=== PATIENT | female | born 1955 | race African-American/Black ===

== ENCOUNTER 2017-06-23 13:54 | Emergency (ER) | payer MEDICARE, MEDICAID ==
[~2017-06-23] VITALS: Ht 167.6 cm; Wt 89.7 kg
[~2017-06-23 13:54] MED LIST: ACULAR LS 5 ML5 ML; ADALAT CC60 MG PO; AMBIEN 10MG10 MG PO; AMITRIPTYLINE H25 M1 PO; AMITRIPTYLINE H50 M1 PO; AMOXICILLIN 25250 MG PO; APAP PO; ARTHRITIS MEDS; ASPIRIN 81M81 MG/TA2 PO; ATIVAN 1MG T1 MG/TAB PO; BACTROBAN 22GM22 GM NAS; BENAZEPRIL; BENAZEPRIL PO; BIAXIN FILMTAB500 MG PO; BUMEX 1MG TA1 MG/TA1 PO; BUTAL PO; BUTALBITAL/APAP1 TA1 PO; CAFF PO; CATAPRES 0.1MG0.1 MG PO; CATAPRES0.2 MG PO; CECLOR 250MG250 MG PO; CEFTIN 250250 MG/TAB PO; CEPHALEXIN500 M1 PO; CLINORIL 1150 MG/TAB PO; CLONAZEPAM PO; COREG 6.256.25 MG/TA PO; COZAAR 25MG25 MG/TAB PO; CYMBALTA 60MG60 MG PO; DEMADEX100 MG PO; DEPAKOTE 250MG250 MG PO; DEPAKOTE DR500 MG PO; DEPAKOTE ER 25250 MG PO; DEPAKOTE500 M1 PO; DEPAKOTE500 MG PO; DEXILANT60 MG PO; ELIDEL; EPIPEN 2-PAK1 MG/ML IM; EPIPEN1 MG/ML MR; FELDENE20 MG PO; FLEXERIL 1010 MG/TAB PO; FLONASEALLERGY NS; GLUCAGEN; GLUCOPHAGE1000 MG PO; INDOMETHACIN50 MG PO; INSLANT; KEPPRA1000 MG PO; KLONOPIN 0.5MG0.5 MG PO; KLONOPIN WAF0.125 MG PO; KLONOPIN WAFER0.5 MG PO; KLOR-CON SPRINK8 MEQ PO; LANTUS100 U/ML SC; LANTUS100 U/ML SQ; LASIX 20MG TABL20 MG PO; LASIX 40MG TABL40 MG PO; LEVAQUIN 5500 MG/TA1 PO; LEVAQUIN 750MG750 M1 PO; LIORESAL 1010 MG/TAB PO; LIORESAL20 MG PO; LIPITOR20 MG PO; LYRICA 150MG C150 MG PO; MELOXICAM; MORPHINE 1515 MG/TAB; MORPHINE 1515 MG/TAB PO; NASONEX SPRAY; NEURONTIN100 MG/CAP PO; NEURONTIN300 MG/CAP PO; NEXIUM 40MG40 MG PO; NEXIUM40 MG PO; NIZORAL CREAM15 GM TP; NORCO 325 MG-51 TAB PO; NORCO 325 MG-7.1 TAB PO; NORVASC 10MG10 MG PO; NORVASC 5MG5 MG/TAB PO; NORVASC10 MG PO; NOVLOG; NOVOLOG 100U100 U/M1 SC; NOVOLOG 100U100 U/M1 SQ; NOVOLOG100 U/ML SC; OCUFLOX OPHTH DR5 ML; PAMELOR50 MG PO; PENICILLIN V500 MG PO; PIROXICAM20 MG PO; PLAVIX 75MG TAB75 MG PO; PRED FORTE 1 ML1 ML; PRILOSEC 20MG20 MG PO; PRILOTC PO; PROAIR HFA0.09 MG/AC IH; PROCARDIA XL 3030 MG PO; PROCARDIA XL 6060 MG PO; REQUIP0.25 MG PO; SINGULAIR 110 MG/TAB PO; TEMOVATE0.05% TP; TOPAMAX 25MG25 M1 PO; TOPROL XL 50MG50 MG PO; TRAMADOL50 MG PO; TYLENOL W/COD1 UDTAB PO; ULTRAM 50MG TAB50 MG; ULTRAM 50MG TAB50 MG PO; ULTRAM100 MG PO; VASOTEC 2.2.5 MG/TAB PO; VENTOLIN0.09 MG IH; VOLTAREN; ZANAFLEX 4MG TAB4 MG PO; ZESTRIL 20MG TA20 MG PO; ZESTRIL 5MG5 MG PO; ZOFRAN ODT4 MG PO; ZOFRAN4 MG PO; ZOFRAN8 MG PO; ZYRTEC 10MG10 MG PO; ZYRTEC-D 12HR 51 TER PO; ZYRTEC-D 5 MG-11 TER PO; [UNRECOGNIZED DRUG - REMARK]; [UNRECOGNIZED DRUG - REMARK]; [UNRECOGNIZED DRUG - REMARK]; [UNRECOGNIZED DRUG - REMARK]
[2017-06-23 13:56] VITALS: TEMP 98.2
[2017-06-23 15:03] LABS: BASO % 0.7 % (0.0-2.0); EOS # 0.3 (0.0-0.7); GRAN % 54.6 % (42.2-75.2); LYMPH # 1.8 (1.2-3.4); MEAN CELL VOLUME 84 fl (80.0-100.0); MEAN CORPUSCULAR HGB CONC 33 g/dl (33.0-37.0); MEAN PLATELET VOLUME 12.2 fl (7.4-10.4); MONO # 0.4 (0.1-0.6); MONO % 6.5 % (1.7-9.3); PLATELET COUNT 262 K/mm3 (130-400); RED BLOOD COUNT 4.04 M/mm3 (4.10-5.30); REDCELL DISTRIBUTION WIDTH-CV 13.2 % (11.5-14.5); WHITE BLOOD COUNT 5.6 K/mm3 (4.8-10.8)
[2017-06-23 15:04] LABS: HEMOGLOBIN 11.1 g/dl (12.5-16.0); MEAN CORPUSCULAR HEMOGLOBIN 27 pg (27.0-31.0)
[2017-06-23] MEDS ORDERED: NORVASC 10MG10 MG PO (15:12)
[2017-06-23] MEDS ORDERED: CEFTIN 250250 MG/TAB PO (15:13)
[2017-06-23] MEDS ORDERED: GLUCOPHAGE500 MG/TAB PO (15:13)
[2017-06-23 15:24] LABS: ADJUSTED CALCIUM 9.3 mg/dL (8.4-10.2); BILIRUBIN,TOTAL 0.5 mg/dL (0.0-1.0); C-REACTIVE PROTEIN 0.8 mg/dL (0.0-0.9); CALCIUM 9.3 mg/dL (8.4-10.2); CREATININE, serum 1.19 mg/dL (0.52-1.25); POTASSIUM 4.7 mmol/L (3.4-5.0); TOTAL PROTEIN 7.7 gm/dL (6.4-8.2)
[2017-06-23] MEDS ORDERED: PREDNISONE20 MG PO (16:08)
[2017-06-23 16:29] VITALS: BP 148/86; PULSE 65
== END 2017-06-23 16:29 | disposition home or self-care (01) ==
LOC: COL.ER 13:54
PROVIDERS: Family Medicine
DX: J20.9 Acute bronchitis, unspecified (principal); E11.9 Type 2 diabetes mellitus without complications; I10 Essential (primary) hypertension; Z86.73 Personal history of transient ischemic attack (TIA), and cerebral infarction without residual deficits; Z87.891 Personal history of nicotine dependence; Z79.4 Long term (current) use of insulin; Z79.84 Long term (current) use of oral hypoglycemic drugs; Z79.02 Long term (current) use of antithrombotics/antiplatelets; Z79.82 Long term (current) use of aspirin

== ENCOUNTER 2017-07-05 11:21 | Emergency (ER) | payer MEDICARE ==
[~2017-07-05] VITALS: Ht 167.6 cm; Wt 89.5 kg
[~2017-07-05 11:21] MED LIST changes: +GLUCOPHAGE500 MG/TAB PO; +PREDNISONE20 MG PO
[2017-07-05 11:28] VITALS: TEMP 99.3
[2017-07-05 12:48] LABS: PH 6 (5-8); SQUAMOUS EPITHELIAL 0-2 /hpf; URINE APPEARANCE Clear; URINE BACTERIA None Seen /hpf; URINE BILIRUBIN Negative (NEGATIVE); URINE BLOOD Negative (NEGATIVE); URINE COLOR Straw; URINE GLUCOSE 3+ (NEGATIVE); URINE KETONE Negative (NEGATIVE); URINE UROBILINOGEN Negative (NEGATIVE); URINE WBC 0-2 /hpf
[2017-07-05 13:10] LABS: BASO # 0.1 (0.0-0.2); EOS # 0.2 (0.0-0.7); GRAN # 3.8 (1.4-6.5); GRAN % 53.7 % (42.2-75.2); LYMPH # 2.3 (1.2-3.4); LYMPH % 33.4 % (20.0-51.0); MEAN CELL VOLUME 83 fl (80.0-100.0); MEAN CORPUSCULAR HGB CONC 34 g/dl (33.0-37.0); MEAN PLATELET VOLUME 12.3 fl (7.4-10.4); MONO # 0.6 (0.1-0.6); MONO % 8.6 % (1.7-9.3); PLATELET COUNT 259 K/mm3 (130-400); RED BLOOD COUNT 3.77 M/mm3 (4.10-5.30); REDCELL DISTRIBUTION WIDTH-CV 13.6 % (11.5-14.5)
[2017-07-05 13:11] LABS: HEMATOCRIT 31.3 % (37.0-47.0); HEMOGLOBIN 10.5 g/dl (12.5-16.0); MEAN CORPUSCULAR HEMOGLOBIN 28 pg (27.0-31.0)
[2017-07-05 13:17] LABS: ADJUSTED CALCIUM 9.5 mg/dL (8.4-10.2); ALANINE AMINOTRANSFERASE 24 U/L (9-52); ALBUMIN 4.1 gm/dL (3.5-5.0); ALKALINE PHOSPHATASE 116 U/L (50-136); ANION GAP 10 mmol/L (7-16); BILIRUBIN,TOTAL 0.6 mg/dL (0.0-1.0); BLOOD UREA NITROGEN 38 mg/dL (7-17); CALCIUM 9.6 mg/dL (8.4-10.2); CARBON DIOXIDE 22 mmol/L (22-30); CHLORIDE 103 mmol/L (98-107); CREATININE, serum 1.49 mg/dL (0.52-1.25); GLUCOSE 368 mg/dL (74-106); POTASSIUM 4.6 mmol/L (3.4-5.0); SODIUM 135 mmol/L (137-145); TOTAL PROTEIN 7.1 gm/dL (6.4-8.2)
[2017-07-05] MEDS ORDERED: FLEXERIL5 MG PO (14:44)
[2017-07-05 14:53] VITALS: BP 192/104; PULSE 74
== END 2017-07-05 14:55 | disposition home or self-care (01) ==
LOC: COL.ER 11:21
PROVIDERS: Physician Assistant
DX: E10.65 Type 1 diabetes mellitus with hyperglycemia (principal); M25.511 Pain in right shoulder; G89.29 Other chronic pain; I10 Essential (primary) hypertension; E78.5 Hyperlipidemia, unspecified; M79.7 Fibromyalgia; Z79.82 Long term (current) use of aspirin; Z79.84 Long term (current) use of oral hypoglycemic drugs
CPT/HCPCS: J3010; J7040

== ENCOUNTER → 2017-07-09 | Outpatient (CLI) | payer MEDICARE, MEDICAID ==
[~2017-07-09] MED LIST changes: +FLEXERIL5 MG PO
== END ==
LOC: COL.VAS 12:20
DX: M79.662 Pain in left lower leg (principal); R60.9 Edema, unspecified

== ENCOUNTER → 2017-07-14 | Outpatient (CLI) | payer MEDICARE, MEDICAID | LOC: COL.RAD 14:18 | DX: M75.81 Other shoulder lesions, right shoulder (principal); M75.101 Unspecified rotator cuff tear or rupture of right shoulder, not specified as traumatic; M19.011 Primary osteoarthritis, right shoulder ==

== ENCOUNTER → 2017-07-30 | Outpatient (CLI) | payer MEDICARE, MEDICAID ==
[2017-07-30 16:31] LABS: BASO # 0.1 (0.0-0.2); EOS # 0.3 (0.0-0.7); EOS % 4.3 % (0-4.0); GRAN # 3.4 (1.4-6.5); GRAN % 47.7 % (42.2-75.2); LYMPH # 2.6 (1.2-3.4); LYMPH % 36.1 % (20.0-51.0); MEAN CELL VOLUME 86 fl (80.0-100.0); MEAN CORPUSCULAR HGB CONC 33 g/dl (33.0-37.0); MEAN PLATELET VOLUME 12.4 fl (7.4-10.4); MONO # 0.8 (0.1-0.6); MONO % 10.6 % (1.7-9.3); PLATELET COUNT 311 K/mm3 (130-400); WHITE BLOOD COUNT 7.2 K/mm3 (4.8-10.8)
[2017-07-30 16:38] LABS: ADJUSTED CALCIUM 9.4 mg/dL (8.4-10.2); ALBUMIN 4.2 gm/dL (3.5-5.0); BILIRUBIN,TOTAL 0.6 mg/dL (0.0-1.0); CALCIUM 9.6 mg/dL (8.4-10.2); CHOLESTEROL RISK RATIO 2.2; CREATININE, serum 1.32 mg/dL (0.52-1.25); POTASSIUM 4.1 mmol/L (3.4-5.0); TOTAL PROTEIN 7.9 gm/dL (6.4-8.2)
[2017-07-30 16:48] LABS: HEMOGLOBIN 11.8 g/dl (12.5-16.0); MEAN CORPUSCULAR HEMOGLOBIN 28 pg (27.0-31.0)
[2017-07-30 17:05] LABS: TSH w REFLEX 2.09 uIU/mL (0.465-4.680)
== END ==
LOC: SUN.DIA 15:29 → COL.LAB 15:29
PROVIDERS: Family Medicine
DX: E11.8 Type 2 diabetes mellitus with unspecified complications (principal); E78.5 Hyperlipidemia, unspecified

== ENCOUNTER 2017-12-02 14:44 | Emergency (ER) | payer MEDICARE, MEDICAID ==
[~2017-12-02] VITALS: Ht 167.6 cm; Wt 91.4 kg
[2017-12-02 14:46] VITALS: TEMP 98.1
[2017-12-02] MEDS ORDERED: SINGULAIR 110 MG/TAB PO (15:09)
[2017-12-02 15:46] LABS: BASO # 0.1 (0.0-0.2); BASO % 1.1 % (0.0-2.0); EOS # 0.2 (0.0-0.7); EOS % 3.9 % (0-4.0); GRAN # 3.5 (1.4-6.5); GRAN % 56.3 % (42.2-75.2); LYMPH # 1.9 (1.2-3.4); LYMPH % 30.5 % (20.0-51.0); MEAN CELL VOLUME 88 fl (80.0-100.0); MEAN CORPUSCULAR HGB CONC 32 g/dl (33.0-37.0); MEAN PLATELET VOLUME 12.6 fl (7.4-10.4); MONO # 0.5 (0.1-0.6); PLATELET COUNT 262 K/mm3 (130-400); RED BLOOD COUNT 3.93 M/mm3 (4.10-5.30); REDCELL DISTRIBUTION WIDTH-CV 12.9 % (11.5-14.5)
[2017-12-02 15:50] LABS: HEMATOCRIT 34.5 % (37.0-47.0); MEAN CORPUSCULAR HEMOGLOBIN 28 pg (27.0-31.0)
[2017-12-02 16:14] LABS: ALBUMIN 4.3 gm/dL (3.5-5.0); BILIRUBIN,TOTAL 0.3 mg/dL (0.0-1.0); C-REACTIVE PROTEIN 0.7 mg/dL (0.0-0.9); CALCIUM 9.7 mg/dL (8.4-10.2); CREATININE, serum 1.39 mg/dL (0.52-1.25); MAGNESIUM 1.9 mg/dL (1.6-2.3); TOTAL PROTEIN 7.8 gm/dL (6.4-8.2)
[2017-12-02 16:51] LABS: ERYTHROCYTE SEDIMENTATION RATE 25 mm/hr (0-30)
[2017-12-02 19:05] VITALS: BP 165/85; PULSE 70
== END 2017-12-02 19:10 | disposition home or self-care (01) ==
LOC: COL.ER 14:44
PROVIDERS: Emergency Medicine
DX: E10.65 Type 1 diabetes mellitus with hyperglycemia (principal); E10.319 Type 1 diabetes mellitus with unspecified diabetic retinopathy without macular edema; M79.661 Pain in right lower leg; M79.662 Pain in left lower leg; M79.671 Pain in right foot; M79.672 Pain in left foot; M79.0 Rheumatism, unspecified; I10 Essential (primary) hypertension; E78.5 Hyperlipidemia, unspecified; Z87.891 Personal history of nicotine dependence; Z86.73 Personal history of transient ischemic attack (TIA), and cerebral infarction without residual deficits; Z87.39 Personal history of other diseases of the musculoskeletal system and connective tissue; Z79.02 Long term (current) use of antithrombotics/antiplatelets
CPT/HCPCS: J1815

== ENCOUNTER 2018-06-10 09:15 | Observation (INO) | payer MEDICARE ==
[~2018-06-10] VITALS: Ht 167.6 cm; Wt 99.0 kg
[2018-06-10] MEDS ORDERED: KEPPRA 500MG500 MG PO (09:21)
[2018-06-10] MEDS ORDERED: CELEBREX 200MG200 MG PO (09:23)
[2018-06-10] MEDS ORDERED: TOPAMAX 25MG25 M1 PO (09:23)
[2018-06-10 10:04] LABS: BASO # 0.1 (0.0-0.2); BASO % 0.9 % (0.0-2.0); EOS # 0.2 (0.0-0.7); EOS % 2.4 % (0-4.0); GRAN # 5.5 (1.4-6.5); GRAN % 69.7 % (42.2-75.2); HEMOGLOBIN 10.4 g/dl (12.5-16.0); LYMPH # 1.6 (1.2-3.4); LYMPH % 20.1 % (20.0-51.0); MEAN CELL VOLUME 86 fl (80.0-100.0); MEAN CORPUSCULAR HEMOGLOBIN 27 pg (27.0-31.0); MEAN CORPUSCULAR HGB CONC 31 g/dl (33.0-37.0); MEAN PLATELET VOLUME 12.2 fl (7.4-10.4); MONO # 0.5 (0.1-0.6); MONO % 6.5 % (1.7-9.3); PLATELET COUNT 302 K/mm3 (130-400); RED BLOOD COUNT 3.87 M/mm3 (4.10-5.30); REDCELL DISTRIBUTION WIDTH-CV 13.7 % (11.5-14.5)
[2018-06-10 10:05] LABS: HEMATOCRIT 33.1 % (37.0-47.0)
[2018-06-10 10:13] LABS: ALANINE AMINOTRANSFERASE 21 U/L (9-52); ALKALINE PHOSPHATASE 117 U/L (50-136); ANION GAP 11 mmol/L (7-16); AST,SGOT 24 U/L (15-37); BILIRUBIN,TOTAL 0.2 mg/dL (0.0-1.0); BLOOD UREA NITROGEN 31 mg/dL (7-17); CALCIUM 8.9 mg/dL (8.4-10.2); CARBON DIOXIDE 23 mmol/L (22-30); CHLORIDE 107 mmol/L (98-107); CREATININE, serum 1.61 mg/dL (0.52-1.25); GLUCOSE 160 mg/dL (74-106); POTASSIUM 3.4 mmol/L (3.4-5.0); SODIUM 141 mmol/L (137-145); TOTAL PROTEIN 7.5 gm/dL (6.4-8.2)
[2018-06-10 10:28] LABS: COLLECTION METHOD CLEAN CATCH
[2018-06-10 10:35] LABS: PH 6 (5-8); SQUAMOUS EPITHELIAL 0-2 /hpf; URINE APPEARANCE Clear; URINE BACTERIA None Seen /hpf; URINE BILIRUBIN Negative (NEGATIVE); URINE BLOOD Negative (NEGATIVE); URINE COLOR Yellow; URINE GLUCOSE Negative (NEGATIVE); URINE KETONE Negative (NEGATIVE); URINE LEUKOCYTE ESTERASE Negative (NEGATIVE); URINE NITRATE Negative (NEGATIVE); URINE PROTEIN(semi-quant) 1+ (NEGATIVE); URINE RBC 0-2 /hpf; URINE UROBILINOGEN Negative (NEGATIVE)
[2018-06-10 10:36] LABS: TROPONIN-I < 0.012 ng/mL (0.000-0.034)
[2018-06-10 10:46] LABS: TRICYCLIC ANTIDEPRESS URINE NEGATIVE
[2018-06-10] MEDS ORDERED: TOPROL XL 25MG25 MG PO (17:12)
[2018-06-10 17:19] VITALS: BP 153/75; PULSE 80; TEMP 98.4
[2018-06-10 19:09] VITALS: BP 149/67; PULSE 73; TEMP 98.5
[2018-06-11 00:02] VITALS: BP 139/73; PULSE 76; TEMP 97.9
[2018-06-11 03:21] VITALS: BP 133/61; PULSE 78; TEMP 98.8
[2018-06-11 06:28] LABS: BASO # 0.1 (0.0-0.2); BASO % 0.7 % (0.0-2.0); EOS # 0.2 (0.0-0.7); EOS % 2.7 % (0-4.0); GRAN # 3.4 (1.4-6.5); GRAN % 49.1 % (42.2-75.2); LYMPH # 2.7 (1.2-3.4); MEAN CELL VOLUME 86 fl (80.0-100.0); MEAN CORPUSCULAR HGB CONC 31 g/dl (33.0-37.0); MEAN PLATELET VOLUME 12.6 fl (7.4-10.4); MONO # 0.6 (0.1-0.6); MONO % 8.2 % (1.7-9.3); PLATELET COUNT 268 K/mm3 (130-400); RED BLOOD COUNT 3.43 M/mm3 (4.10-5.30); REDCELL DISTRIBUTION WIDTH-CV 13.6 % (11.5-14.5)
[2018-06-11 06:34] LABS: HEMATOCRIT 29.4 % (37.0-47.0); HEMOGLOBIN 9.2 g/dl (12.5-16.0); MEAN CORPUSCULAR HEMOGLOBIN 27 pg (27.0-31.0)
[2018-06-11 06:42] LABS: CALCIUM 8.6 mg/dL (8.4-10.2); CHOLESTEROL RISK RATIO 2.6; CREATININE, serum 1.53 mg/dL (0.52-1.25); POTASSIUM 3.8 mmol/L (3.4-5.0)
[2018-06-11 12:03] VITALS: BP 125/67; PULSE 81; TEMP 98.8
[2018-06-11] MEDS ORDERED: TEGRETOL 2200 MG/TA1 PO (14:50)
[2018-06-11] MEDS ORDERED: FIORICET 325 MG1 TA1 PO (14:54)
== END 2018-06-11 16:25 | disposition home or self-care (01) ==
LOC: COL.ER 09:15 → MEDICAL 11:30
PROVIDERS: Emergency Medicine; Family Medicine
DX: G40.209 Localization-related (focal) (partial) symptomatic epilepsy and epileptic syndromes with complex partial seizures, not intractable, without status epilepticus (principal); R41.82 Altered mental status, unspecified; E11.9 Type 2 diabetes mellitus without complications; G40.409 Other generalized epilepsy and epileptic syndromes, not intractable, without status epilepticus; I10 Essential (primary) hypertension; M79.7 Fibromyalgia; Z79.01 Long term (current) use of anticoagulants; E86.0 Dehydration; R09.81 Nasal congestion; M17.0 Bilateral primary osteoarthritis of knee; K21.9 Gastro-esophageal reflux disease without esophagitis; M19.011 Primary osteoarthritis, right shoulder; Z86.73 Personal history of transient ischemic attack (TIA), and cerebral infarction without residual deficits; Z79.4 Long term (current) use of insulin; Z79.1 Long term (current) use of non-steroidal anti-inflammatories (NSAID); Z87.891 Personal history of nicotine dependence; Z83.3 Family history of diabetes mellitus; Z82.3 Family history of stroke; Z82.49 Family history of ischemic heart disease and other diseases of the circulatory system; Z88.1 Allergy status to other antibiotic agents; Z88.6 Allergy status to analgesic agent; Z88.8 Allergy status to other drugs, medicaments and biological substances; Z90.09 Acquired absence of other part of head and neck
CPT/HCPCS: A9585; G0378; J1650; J1815; J2060; J2405; J7030

== ENCOUNTER → 2018-06-22 | Outpatient (CLI) | payer MEDICARE ==
[~2018-06-22] MED LIST changes: +CELEBREX 200MG200 MG PO; +FIORICET 325 MG1 TA1 PO; +KEPPRA 500MG500 MG PO; +TEGRETOL 2200 MG/TA1 PO; +TOPROL XL 25MG25 MG PO
[2018-06-22 15:53] LABS: BASO # 0.1 (0.0-0.2); EOS # 0.2 (0.0-0.7); EOS % 2.6 % (0-4.0); GRAN # 3.3 (1.4-6.5); GRAN % 56.6 % (42.2-75.2); LYMPH # 1.9 (1.2-3.4); LYMPH % 32.2 % (20.0-51.0); MEAN CELL VOLUME 86 fl (80.0-100.0); MEAN CORPUSCULAR HEMOGLOBIN 28 pg (27.0-31.0); MEAN CORPUSCULAR HGB CONC 32 g/dl (33.0-37.0); MEAN PLATELET VOLUME 11.6 fl (7.4-10.4); MONO # 0.4 (0.1-0.6); MONO % 7.3 % (1.7-9.3); PLATELET COUNT 324 K/mm3 (130-400); RED BLOOD COUNT 3.59 M/mm3 (4.10-5.30); REDCELL DISTRIBUTION WIDTH-CV 13.6 % (11.5-14.5)
[2018-06-22 15:59] LABS: CALCIUM 8.5 mg/dL (8.4-10.2); CREATININE, serum 1.48 mg/dL (0.52-1.25); HEMATOCRIT 30.9 % (37.0-47.0)
== END ==
LOC: COL.LAB 15:09
PROVIDERS: Psychiatry & Neurology Neurology
DX: G40.209 Localization-related (focal) (partial) symptomatic epilepsy and epileptic syndromes with complex partial seizures, not intractable, without status epilepticus (principal)

== ENCOUNTER 2019-06-04 10:50 | Emergency (ER) | payer MEDICARE ==
[~2019-06-04] VITALS: Ht 167.6 cm; Wt 91.4 kg
[2019-06-04 10:58] VITALS: TEMP 98.6
[2019-06-04] MEDS ORDERED: MEDROL 4MG DOSPA4 MG PO (15:44)
[2019-06-04 15:59] VITALS: BP 151/98; PULSE 71
== END 2019-06-04 16:01 | disposition home or self-care (01) ==
LOC: COL.ER 10:50
DX: M25.511 Pain in right shoulder (principal); G89.29 Other chronic pain; I10 Essential (primary) hypertension; Z79.02 Long term (current) use of antithrombotics/antiplatelets; Z79.4 Long term (current) use of insulin
CPT/HCPCS: J1885

== ENCOUNTER → 2019-12-01 | Outpatient (CLI) | payer MEDICARE, MEDICAID ==
[~2019-12-01] MED LIST changes: +MEDROL 4MG DOSPA4 MG PO
== END ==
LOC: COL.RAD 11-28 08:15
DX: G31.9 Degenerative disease of nervous system, unspecified (principal); M50.322 Other cervical disc degeneration at C5-C6 level; E11.9 Type 2 diabetes mellitus without complications

== ENCOUNTER → 2020-02-20 | Outpatient (CLI) | payer MEDICARE, MEDICAID | LOC: COL.CARD 11:05 | DX: I49.3 Ventricular premature depolarization (principal) ==

== ENCOUNTER 2020-05-24 14:44 | Inpatient (IN) | payer MEDICARE, MEDICAID ==
[~2020-05-24] VITALS: Ht 167.6 cm; Wt 80.6 kg
[~2020-05-24 14:44] MED LIST changes: +REQUIP 0.5MG0.5 MG PO; -TOPROL XL 25MG25 MG PO
[2020-05-24 15:31] LABS: BASO # 0.1 (0.0-0.2); BASO % 0.9 % (0.0-2.0); EOS # 0.1 (0.0-0.7); EOS % 0.9 % (0-4.0); GRAN # 3.3 (1.4-6.5); GRAN % 57.5 % (42.2-75.2); HEMOGLOBIN 11.9 g/dl (12.5-16.0); INR 0.9 (0.8-3.0); LYMPH # 1.7 (1.2-3.4); LYMPH % 30.6 % (20.0-51.0); MEAN CELL VOLUME 89 fl (80.0-100.0); MEAN CORPUSCULAR HEMOGLOBIN 29 pg (27.0-31.0); MEAN CORPUSCULAR HGB CONC 32 g/dl (33.0-37.0); MEAN PLATELET VOLUME 14.2 fl (7.4-10.4); MONO # 0.6 (0.1-0.6); MONO % 9.7 % (1.7-9.3); PLATELET COUNT 162 K/mm3 (130-400); PROTHROMBIN TIME 10.5 SECONDS (9.7-12.8); RED BLOOD COUNT 4.15 M/mm3 (4.10-5.30); REDCELL DISTRIBUTION WIDTH-CV 12.8 % (11.5-14.5)
[2020-05-24 15:37] LABS: COLLECTION METHOD CATHETER
[2020-05-24] MEDS ORDERED: BASAGLAR K100 UNIT/1 SQ (15:44)
[2020-05-24] MEDS ORDERED: ZOFRAN8 MG PO (15:44)
[2020-05-24 15:45] LABS: PH 7 (5-8); SQUAMOUS EPITHELIAL None Seen /hpf; URINE APPEARANCE Clear; URINE BACTERIA Rare /hpf; URINE BILIRUBIN Negative (NEGATIVE); URINE BLOOD Negative (NEGATIVE); URINE COLOR Straw; URINE GLUCOSE 3+ (NEGATIVE); URINE KETONE Negative (NEGATIVE); URINE LEUKOCYTE ESTERASE Negative (NEGATIVE); URINE NITRATE Negative (NEGATIVE); URINE PROTEIN(semi-quant) 2+ (NEGATIVE); URINE RBC 0-2 /hpf; URINE UROBILINOGEN Negative (NEGATIVE)
[2020-05-24] MEDS ORDERED: PRINIVIL20 MG PO (15:45)
[2020-05-24] MEDS ORDERED: DEPAKOTE500 MG PO (15:46)
[2020-05-24] MEDS ORDERED: VIMPAT150 MG PO (15:48)
[2020-05-24 16:01] LABS: TRICYCLIC ANTIDEPRESS URINE NEGATIVE
[2020-05-24] MEDS ORDERED: TEGRETOL 2200 MG/TA1 PO (17:00)
[2020-05-24] MEDS ORDERED: PLAVIX 75MG TAB75 MG PO (17:01)
[2020-05-24] MEDS ORDERED: LIPITOR20 MG PO (17:01)
[2020-05-24 17:54] LABS: ALANINE AMINOTRANSFERASE 13 U/L (4-34); ALBUMIN 4.2 gm/dL (3.5-5.0); ALKALINE PHOSPHATASE 115 U/L (50-136); ANION GAP 8 mmol/L (7-16); AST,SGOT 27 U/L (15-37); BILIRUBIN,TOTAL 0.6 mg/dL (0.0-1.0); BLOOD UREA NITROGEN 31 mg/dL (7-17); CARBON DIOXIDE 24 mmol/L (22-30); CHLORIDE 103 mmol/L (98-107); CREATININE, serum 1.65 (0.52-1.25); GLUCOSE 332 mg/dL (74-106); MAGNESIUM 1.9 mg/dL (1.6-2.3); POTASSIUM 4.4 mmol/L (3.4-5.0); SODIUM 136 mmol/L (137-145); TOTAL PROTEIN 7.7 gm/dL (6.4-8.2)
[2020-05-24 17:55] LABS: ALCOHOL(ethanol),MEDICAL < 10 mg/dL
[2020-05-24 17:57] LABS: ACETONE,SERUM NEGATIVE; CARBAMAZEPINE (TEGRETOL) 8.4 ug/mL (4.0-12.0)
[2020-05-24 17:58] LABS: VALPROIC ACID (DEPAKENE) 40.5 ug/mL (50.0-100.0)
[2020-05-24 18:06] LABS: TROPONIN-I < 0.012 ng/mL (0.000-0.035)
[2020-05-24 18:10] LABS: PROLACTIN 10.6 ng/mL (3.0-18.6)
[2020-05-24 19:48] VITALS: BP 180/69; PULSE 68; TEMP 97.6
--- NOTE | 2020-05-24 19:53 | NUR ---
PATIENT ARRIVED TO THE FLOOR
[2020-05-24 23:33] VITALS: BP 156/64; PULSE 68; TEMP 98.1
--- NOTE | 2020-05-25 01:34 | NUR ---
ASSISTED PATIENT TO THE BED SIDE COMMONDE WITH THE ASSISTANCE OF 2 PEOPLE. PATIENT WAS VERY WOBBLY ON HER FEET AND COULD NOT STEP AT FIRST. PATIENT USED THE BEDSIDE COMMONDE AND THEN WAS ASSISTED BACK TO BED. 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
[2020-05-25 04:13] VITALS: BP 156/64; PULSE 66; TEMP 98
--- NOTE | 2020-05-25 05:20 | NUR ---
patient came up to the unit from the emergency room. patient is a heavy 2 assist as she is not steady on her feet. patient will have intermittent confusion going on. patient is able to tell you who the president is, what year it is, and where she is but has troubles telling you what her birthday is. patient is on teley and has no issues there. patient is npo for a brain w & w/o MRI this morning. patient is on seizure precautions as she does have seizures and her doctors have been changing her medications around. reports that the patient gets injections behind her eyes because of the diabetic retniopathy. patient does have weakness but is weaker on her left side. will continue to monitor but will report off to day shift.
[2020-05-25 06:49] LABS: CALCIUM 8.6 mg/dL (8.4-10.2); CREATININE, serum 1.65 (0.52-1.25); POTASSIUM 3.7 mmol/L (3.4-5.0)
[2020-05-25 07:13] LABS: BASO # 0.1 (0.0-0.2); EOS # 0.1 (0.0-0.7); EOS % 1.2 % (0-4.0); GRAN # 2.3 (1.4-6.5); GRAN % 45.4 % (42.2-75.2); LYMPH % 40.6 % (20.0-51.0); MEAN CELL VOLUME 89 fl (80.0-100.0); MEAN CORPUSCULAR HGB CONC 33 g/dl (33.0-37.0); MEAN PLATELET VOLUME 14.1 fl (7.4-10.4); MONO # 0.6 (0.1-0.6); MONO % 11.6 % (1.7-9.3); PLATELET COUNT 142 K/mm3 (130-400); RED BLOOD COUNT 3.39 M/mm3 (4.10-5.30)
[2020-05-25 07:14] LABS: HEMATOCRIT 30.2 % (37.0-47.0); HEMOGLOBIN 9.8 g/dl (12.5-16.0); MEAN CORPUSCULAR HEMOGLOBIN 29 pg (27.0-31.0)
[2020-05-25 08:58] VITALS: BP 166/64; PULSE 56; TEMP 97.8
[2020-05-25 11:47] VITALS: BP 157/75; PULSE 67; TEMP 98.4
--- NOTE | 2020-05-25 13:31 | NUR ---
Clay Press Operator met with the patient to complete initial intake. PT/OT/ST and Neurology ordered/consulted. The patient lives in [place] with her , Sanchez. The patient receives assistance from Sanchez for showers as needed. The patient's PCP is Dr. Aguilar and patient receives medications delivered from [facility]. The patient does not have advanced directives. The patient plans to return home at discharge with Sanchez providing transportation. MORGAN contacted the patient's Sanchez to discuss this plan. Sanchez states the patient is home alone on Tuesdays, Wednesdays and Fridays from 8-4. He states that the patient does prepare her own meals and is able to toilet herself while he is out of the home. He spends the rest of the time with the patient in the home. MORGAN inquired about possible HHS and Sanchez would like to find out more before a decision is made regarding HHS. Will continue to follow.
--- NOTE | 2020-05-25 15:59 | NUR ---
Pt assessment completed and charted. Medications administered per mar after MRI. Pt is alert, oriented to time, place, situation. Occasional confused conversation. Per ST during cog eval, pt unable to "find certain words" and "understand some concepts". Speech has been clear and appropriate with this nurse, some forgetfulness noted. Neuro checks WNL, strength appropriate. Pt is 1-2 assist to bedside commode, unsteadiness on feet. Pt had RWR and LWR IV. Pt has been difficult stick w/ labs, this nurse called NETTE Padilla to discuss PICC placement. PICC ordered, pt has TAQUERIA PICC in place now, both ports flush well, good blood return. Pt on room air, breathing is even and unlabored. Pt denies SOB. LS CTA, heart RRR. Pt denies pain at this time. BS checked resulting 65, pt headed to MRI. Pt back from MRI and lunch brought up, BS rechecked resulted 115. Pt denies any other pain. No further needs expressed at this time. This nurse has spoke to multiple times to discuss POC. Per pt pt isn ot to be on Depakote, pt has been receiving med. This nurse called Dr. Alvarado office for med list. Will notify NETTE Padilla.
[2020-05-25 17:13] VITALS: BP 154/65; PULSE 58
--- NOTE | 2020-05-25 19:44 | NUR ---
Pt assessment completed and documented. Pt just finished eating dinner and is currently resting in bed. Pt alert and oriented x4. Denies pain. PICC to RUE CDI with good blood return. Pt denies any other needs at this time. Seizure precautions in place. Fall precautions in place. Bed alarm on. Call light within reach. Will continue to monitor.
[2020-05-25 21:29] VITALS: BP 127/51; PULSE 58; TEMP 98
[2020-05-26 00:02] VITALS: BP 161/78; PULSE 63; TEMP 98.1
--- NOTE | 2020-05-26 02:21 | NUR ---
Pt had episode of vomiting. PRN zofran given per orders. PT states relief from nausea and is not experiencing any vomiting at this time. Requesting televison be turned off along with lights. Call light within reach. Will continue to monitor.
[2020-05-26 03:44] VITALS: BP 153/73; PULSE 65; TEMP 98
--- NOTE | 2020-05-26 06:50 | NUR ---
Pt has uneventful shift. Pt alert and oriented x4 throughout the night. Denied pain. Pt had one episode of nausea/ vomiting and received PRN zofran x1 per orders. PICC to RUE CDI. Pt denies any other needs at this time. Call light within reach. Bed alarm on.
--- NOTE | 2020-05-26 06:55 | NUR ---
Report given to KELTON Petit
[2020-05-26 06:57] LABS: BASO % 0.5 % (0.0-2.0); EOS # 0.1 (0.0-0.7); EOS % 0.9 % (0-4.0); GRAN # 4.7 (1.4-6.5); GRAN % 71.4 % (42.2-75.2); LYMPH # 1.2 (1.2-3.4); LYMPH % 18.6 % (20.0-51.0); MEAN CELL VOLUME 90 fl (80.0-100.0); MEAN CORPUSCULAR HGB CONC 32 g/dl (33.0-37.0); MONO # 0.5 (0.1-0.6); MONO % 8.1 % (1.7-9.3); PLATELET COUNT 139 K/mm3 (130-400); RED BLOOD COUNT 3.22 M/mm3 (4.10-5.30); REDCELL DISTRIBUTION WIDTH-CV 12.8 % (11.5-14.5)
[2020-05-26 07:07] LABS: HEMATOCRIT 29.1 % (37.0-47.0); HEMOGLOBIN 9.3 g/dl (12.5-16.0); MEAN CORPUSCULAR HEMOGLOBIN 29 pg (27.0-31.0)
[2020-05-26 07:12] LABS: CALCIUM 8.5 mg/dL (8.4-10.2); CREATININE, serum 1.49 (0.52-1.25)
--- NOTE | 2020-05-26 08:15 | NUR ---
Patient sitting up in bed. Nursing staffx2 assisted patient up in bed for breakfast. VSS. PICC TAQUERIA CDI. Patient is alertx3, but intermittently confused. Denies pain and discomfort. No further needs expressed from the patient. Seizure precautions in place. Call light within reach. Fall precautions in place
[2020-05-26 08:20] VITALS: BP 160/59; PULSE 57; TEMP 97.6
[2020-05-26] MEDS ORDERED: TOPROL XL100 MG PO (10:07)
[2020-05-26] MEDS ORDERED: VIMPAT200 MG PO (10:10)
[2020-05-26 12:29] VITALS: BP 127/53; PULSE 56; TEMP 97.8
--- NOTE | 2020-05-26 14:15 | NUR ---
Discharge paperwork reviewed with the patient. Patient verbalized an understanding of following doctors orders. PICC removed from KELTON Natarajan. Personal belongings and discharge paperwork with patient. No further needs expressed from patient. Patient taken by wheelchair by nurse to ER entrance
== END 2020-05-26 14:15 | disposition home or self-care (01) | DRG 71 ==
LOC: COL.ER 14:44 → MEDICAL 16:32
PROVIDERS: Emergency Medicine; Physician Assistant; ADMIT Internal Medicine
PROC: 02HV33Z Insertion of Infusion Device into Superior Vena Cava, Percutaneous Approach (ICD-10-PCS; principal; 2020-05-25)
DX: G93.40 Encephalopathy, unspecified (principal); N17.9 Acute kidney failure, unspecified; Z95.811 Presence of heart assist device; I10 Essential (primary) hypertension; G40.909 Epilepsy, unspecified, not intractable, without status epilepticus; E10.40 Type 1 diabetes mellitus with diabetic neuropathy, unspecified; E10.22 Type 1 diabetes mellitus with diabetic chronic kidney disease; I12.9 Hypertensive chronic kidney disease with stage 1 through stage 4 chronic kidney disease, or unspecified chronic kidney disease; I49.3 Ventricular premature depolarization; M79.7 Fibromyalgia; K21.9 Gastro-esophageal reflux disease without esophagitis; N18.9 Chronic kidney disease, unspecified; E86.0 Dehydration; M19.90 Unspecified osteoarthritis, unspecified site; Z79.02 Long term (current) use of antithrombotics/antiplatelets; Z86.73 Personal history of transient ischemic attack (TIA), and cerebral infarction without residual deficits; Z88.6 Allergy status to analgesic agent; Z88.1 Allergy status to other antibiotic agents; Z88.5 Allergy status to narcotic agent
CPT/HCPCS: 99222-AI; 99232-AI; 99239; A9585; C1751; J1644; J1815; J1953; J2405; J7030

== ENCOUNTER 2020-05-26 17:53 | Inpatient (IN) | payer MEDICARE, MEDICAID ==
[~2020-05-26] VITALS: Ht 167.6 cm; Wt 84.4 kg
[~2020-05-26 17:53] MED LIST changes: -DESYREL 50MG50 MG PO
[2020-05-26 18:15] VITALS: BP 137/56; PULSE 65
[2020-05-26 18:40] VITALS: BP 141/58; PULSE 64; TEMP 97.7
--- NOTE | 2020-05-26 20:00 | NUR ---
Pt assessment completed and documented. Pt resting in bed at this time watching televison. States she is looking forwards to getting sleep tonight because she is very tired and has not gotten good sleep the last couple nights. Pt alert and oriented x4. Denies pain. Pt denies any other needs at this time. Call light within reach. Bed alarm on. Will continue to monitor.
--- NOTE | 2020-05-26 20:33 | NUR ---
Pt has had identification bracelet up to this point with a different v number on than the current admission v number. BG checked twice at this point with v number [id number] due to pt not having on appropriate bracelet with current v number. BG at 191 was 189. BG at this time is 179. New identification bracelet placed at this time with appropriate pt information and current v number
[2020-05-26 20:35] VITALS: BP 157/74; PULSE 61; TEMP 97.5
[2020-05-26 23:00] LABS: BASO # 0.1 (0.0-0.2); BASO % 0.6 % (0.0-2.0); EOS % 0.4 % (0-4.0); GRAN # 7.1 (1.4-6.5); GRAN % 78.5 % (42.2-75.2); HEMOGLOBIN 10.9 g/dl (12.5-16.0); LYMPH # 1.3 (1.2-3.4); LYMPH % 14.3 % (20.0-51.0); MEAN CELL VOLUME 90 fl (80.0-100.0); MEAN CORPUSCULAR HEMOGLOBIN 29 pg (27.0-31.0); MEAN CORPUSCULAR HGB CONC 32 g/dl (33.0-37.0); MEAN PLATELET VOLUME 13.8 fl (7.4-10.4); MONO # 0.5 (0.1-0.6); MONO % 5.6 % (1.7-9.3); PLATELET COUNT 162 K/mm3 (130-400); RED BLOOD COUNT 3.74 M/mm3 (4.10-5.30); REDCELL DISTRIBUTION WIDTH-CV 12.7 % (11.5-14.5)
[2020-05-26 23:02] LABS: HEMATOCRIT 33.6 % (37.0-47.0)
[2020-05-26 23:13] LABS: CALCIUM 8.8 mg/dL (8.4-10.2); CREATININE, serum 1.59 (0.52-1.25); MAGNESIUM 1.9 mg/dL (1.6-2.3); POTASSIUM 4.2 mmol/L (3.4-5.0)
[2020-05-27] VITALS (7 sets, daily range): BP systolic 138–192; BP diastolic 55–79; PULSE 64–76; TEMP 98.1–99.3
--- NOTE | 2020-05-27 06:15 | NUR ---
Pt was able to get some sleep tonight and was able to eat a good dinner before bed. Has remained oriented x4 throughout the night. BG checked and treated per orders from RADHA Guerin. Denied pain overnight. Pt denies any other needs. Call light within reach. Bed alarm on.
--- NOTE | 2020-05-27 08:00 | NUR ---
Patient laying in bed, A&Ox4. Denies pain and discomfort. BP hypertensive. No IV access, doctor aware. Denies pain and discomfort. Nurse instructed patient to call for assistance with ambulation. Patient verbalized an understanding. WBG high, will continue to monitor. No further needs expressed from the patient. Call light within reach. Bed alarm on
--- NOTE | 2020-05-27 09:25 | NUR ---
Nurses at the nurses station heard patient yell out for help. 3x nursing staff at the bedside, patient upper half of body on the floor, patient propped up on right arm and feet on the bed. Nursing staffx3 assisted patient back to the bed. VS taken and BP elevated. Patient stated she does not hurt. Doctor Garcia notified and orders placed. Call light within reach. Bed alarm on. Patient instructed to call nursing staff for assistance with ambulation
[2020-05-27 09:57] LABS: CALCIUM 9.3 mg/dL (8.4-10.2); CREATININE, serum 1.61 (0.52-1.25); POTASSIUM 3.5 mmol/L (3.4-5.0)
--- NOTE | 2020-05-27 10:00 | NUR ---
NETTE Perkins informs the nurse that the patient is throwing up. Nurse gives the patient a basin and the patient throws up again all over the bed, bedside table and floor. WBG assessed, 113. Patient A&Ox2, confused on location, says she is at [place]. Nursing staff assisted with getting patient cleaned up and doctor Radha at the bedside assessing patient. Patient placed in yellow gown and yellow band placed on patient. Fall precautions in place. Call light within reach. Bed alarm on
--- NOTE | 2020-05-27 17:29 | NUR ---
Patient had an eventful morning. Patient fell out of bed in the beginning of shift and threw upx2. Patient tolerated CT of head and central line placement. Patient has been calling for assistance with ambulation. Patient using BSC with 1xassist. Patient does not have much of an appetite, nurse encouraging patient to eat. VSS, BP hypertensive. WBG elevated, continue monitoring, doctors aware. Central line CDI, old drainage noted on disk under tegaderm, fluids infusing. No further needs expressed from patient. Call light within reach. Bed alarm on. Fall precautions in place
[2020-05-28] VITALS: BP 180/66; PULSE 81; TEMP 97.7
[2020-05-28 04:26] VITALS: BP 196/83; PULSE 98; TEMP 99.8
[2020-05-28 08:02] VITALS: BP 151/65; PULSE 94; TEMP 98.5
[2020-05-28] MEDS ORDERED: ZYRTEC 10MG10 MG PO (09:11)
--- NOTE | 2020-05-28 09:19 | NUR ---
Patient is alert and oriented. denies any pain. add 20mg cetirizine to home med as stated by patient. resting in bed at this time.
--- NOTE | 2020-05-28 10:14 | NUR ---
Initial visit; Patient thanked Crown Assembly Machine Operator for listening and offering empathy and understanding. Crown Assembly Machine Operator offered prayer and God's blessings and will look in on Princess while she is a patient here at our hospital.
--- NOTE | 2020-05-28 11:47 | NUR ---
Patient complained of nausea, administered prn Zofran 8mg.
[2020-05-28 12:05] VITALS: BP 149/59; PULSE 71; TEMP 98.3
--- NOTE | 2020-05-28 12:23 | NUR ---
Reassessed Nausea, patient report feeling better.
[2020-05-28 15:17] VITALS: BP 116/52; PULSE 66; TEMP 98.2
--- NOTE | 2020-05-28 16:04 | NUR ---
Patient resting in bed at this time. discussed care with Dr Lopez - Hospitalist. Patient is staying overnight.
--- NOTE | 2020-05-28 16:43 | NUR ---
Formula Mixer met with patient to discuss discharge planning. Patient lives in [place] with her , Sanchez (ph#[phone]) and sees Dr. Aguilar for primary care. [email or web address]. Patient does not use any DME and reports she is normally independent with ADLS. Patient does not have Advance Directives and was not interested in completing DPOA-HC at this time. SW spoke with patient about Home Health Services. Patient is interested and would like list of agencies. SW provided. SW also spoke to patient about recommendation for front wheeled walker. Patient would like to have this ordered through [employer]. SW sent order for FWW, facesheet, and therapy notes to [facility] who advised they would deliver FWW to patient's home at time of discharge. SW will continue to follow.
--- NOTE | 2020-05-28 17:38 | NUR ---
Updated about improved BP, nausea and strength.
--- NOTE | 2020-05-28 18:07 | NUR ---
02 Reduced to 1.5L FROM 3L. O2 saturation at 97%
--- NOTE | 2020-05-28 19:38 | NUR ---
Report received, assumed care for cnc machinist 2nd shift. A&Ox3. Assessment complete. VS have been stable-blood pressure is WNL this afternoon. Denies pain/nausea/shortness of breath. No confused conversation as of now. Expressing concern her is upset with her because she is still in the hospital and he wanted her to come home because they have bills to pay. States she needs to be here to get better but he doesnt care. Discussed the importance at length about the importance of figuring out what is going on medically before she goes home so her blood sugar doesnt drop so low again. Verbalizes understanding. Plan of care discussed for this shift to include HS meds/calling for help/reporting any concerns. Denies questions/concerns. Call light in reach/bed alarm on. Will monitor.
[2020-05-28 20:13] VITALS: BP 126/46; PULSE 65; TEMP 98.3
[2020-05-29] VITALS (8 sets, daily range): BP systolic 146–213; BP diastolic 48–78; PULSE 69–86; TEMP 98.3–99.1
--- NOTE | 2020-05-29 00:37 | NUR ---
Sitting up in bed watching TV-states she is hungry. [place] box provided. Denies pain/shortness of breath/nausea. Has tolerated PO thus far this shift. Voiding without difficulty. VS stable. Denies needs. Call light in reach/bed alarm on will monitor.
--- NOTE | 2020-05-29 04:05 | NUR ---
Report from PCT of bedside glucose of 304 as well as elevated blood pressure of 213/70. Apoorva GARCIA notified of bloodsugar and new order received to give 6 units Novolog now. Repeat manual blood pressure by this nurse 186/78. PRN hydralazine given per dr order. Call light in reach/bed alarm on. Will monitor.
--- NOTE | 2020-05-29 05:01 | NUR ---
Rested well later this shift. Had hydralazine x1 for elevated blood pressure. Blood sugars elevated-extra dose of Novolog given at 0400 due to blood sugar of 304. Denied nausea-tolerated diet. Was A&Ox3-forgetful. Did express concerns her was upset with her for not coming home yesterday. NS@100mls/hr to left IJ. Denies needs. Call light in reach/bed alarm on. Will monitor.
--- NOTE | 2020-05-29 06:45 | NUR ---
appears to be dozing, bedside shift report received from Xochilt Lara
[2020-05-29 07:03] LABS: BASO % 0.6 % (0.0-2.0); EOS # 0.2 (0.0-0.7); GRAN # 4.2 (1.4-6.5); GRAN % 60.4 % (42.2-75.2); LYMPH # 1.6 (1.2-3.4); LYMPH % 23.2 % (20.0-51.0); MEAN CELL VOLUME 91 fl (80.0-100.0); MEAN CORPUSCULAR HGB CONC 32 g/dl (33.0-37.0); MEAN PLATELET VOLUME 13.9 fl (7.4-10.4); MONO # 0.8 (0.1-0.6); MONO % 11.9 % (1.7-9.3); PLATELET COUNT 156 K/mm3 (130-400); RED BLOOD COUNT 2.91 M/mm3 (4.10-5.30); REDCELL DISTRIBUTION WIDTH-CV 13.4 % (11.5-14.5)
[2020-05-29 07:14] LABS: ALBUMIN 3.2 gm/dL (3.5-5.0); BILIRUBIN,TOTAL 0.2 mg/dL (0.0-1.0); CALCIUM 8.6 mg/dL (8.4-10.2); CREATININE, serum 1.66 (0.52-1.25); MAGNESIUM 1.9 mg/dL (1.6-2.3); POTASSIUM 4.2 mmol/L (3.4-5.0); TOTAL PROTEIN 6.1 gm/dL (6.4-8.2)
[2020-05-29 07:16] LABS: HEMATOCRIT 26.6 % (37.0-47.0); HEMOGLOBIN 8.5 g/dl (12.5-16.0); MEAN CORPUSCULAR HEMOGLOBIN 29 pg (27.0-31.0)
--- NOTE | 2020-05-29 08:15 | NUR ---
BP rechecked and is 182/76, medicated with hydralazine 10mg IV, sitting up in bed having breakfast and tolerates well,
--- NOTE | 2020-05-29 09:23 | NUR ---
occupational therapy in to work with patient
--- NOTE | 2020-05-29 09:29 | NUR ---
Follow-up visit; Patient thanked Acquisition Associate for checking up on her today and offering God's blessings.
--- NOTE | 2020-05-29 09:45 | NUR ---
sitting up in recliner, Dr Lopez in to see patient, IV fluids stopped, will plan discharge later today,
--- NOTE | 2020-05-29 10:00 | NUR ---
ambulating in [place] with walker with therapist standby, ambulates with steady gait
--- NOTE | 2020-05-29 10:29 | NUR ---
resting in chair, full assessment completed, see intervention for further info
[2020-05-29] MEDS ORDERED: PRINIVIL20 MG PO (11:10)
--- NOTE | 2020-05-29 12:50 | NUR ---
Dr Bradshaw called this nurse to check on patient, entered room and she is hard to arouse, she does finally arouse to name and states she is just tired, Dr Lopez notified, accucheck 211, VS all WNL, FIELD CROP II FARMWORKER states she had been awake just a short time ago and asked to get back into bed and she assisted herinto bed, Dr Lopez in to room also to check on patient, orders placed
--- NOTE | 2020-05-29 13:15 | NUR ---
awakened and she states she needs to go to the bathroom, and that she is hungry, assisted up to bedside commode, she is asking where she is and then she remembers she is in the hospital, but asks if she is in [facility] or [facility], explained she is at [address], then is asking if she had a stroke that she doesn't feel right, back to bed and is eating lunch now, BP is 205/83 medicated with hydralazine 10mg IV
--- NOTE | 2020-05-29 13:37 | NUR ---
Human Resources Intern followed up with patient about Home Health. SW had patient's , Sanchez on speakerphone to discuss HH options. Patient and Sanchez selected [facility]. MORGAN contacted Pema at [facility] and faxed referral. Pema advised they are able to accept. Patient may discharge today. MORGAN will continue to follow.
--- NOTE | 2020-05-29 13:42 | NUR ---
spoke with and he states that why I explained to him was not really normal, he says in the past when she has had a seizure she has a blank stair and is forgetful and doens't really know what is going on, this information was given to Dr Lopez, will cancel discharge today and place new orders
--- NOTE | 2020-05-29 13:47 | NUR ---
Bankruptcy Judge spoke with patient's RN, Isidra who advised patient will not discharge today. MORGAN provided this update to Pema patel [facility].
--- NOTE | 2020-05-29 14:30 | NUR ---
spoke with on the phone and explained would not discharge today, then also spoke with patient and she wastearful about not going home but understands, talking on phone with at this time
--- NOTE | 2020-05-29 16:06 | NUR ---
resting in bed, cardiopulmonary in to complete EKG and ABG, patient denies needs
[2020-05-29 16:16] LABS: ARTERIAL BLD GAS O2 SATURATION 96.2 % (92-100); ARTERIAL BLOOD GAS BASE EXCESS -4.1 (-2-2); ARTERIAL BLOOD GAS HCO3 19.1 meq/L (22-26); ARTERIAL BLOOD GAS PCO2 28.9 mmHg (35-45); ARTERIAL BLOOD GAS PO2 82.3 mmHg (80-100); ARTERIAL BLOOD GAS pH 7.44 (7.35-7.45)
--- NOTE | 2020-05-29 16:53 | NUR ---
Dr Ponce in to see patient
--- NOTE | 2020-05-29 17:57 | NUR ---
sitting up in bed eating supper, is alert and oriented,
--- NOTE | 2020-05-29 18:50 | NUR ---
bedside shift report given to KELTON Borrero
--- NOTE | 2020-05-29 20:07 | NUR ---
Resting in bed. Assessment complete. Lungs clear. Heart sounds normal. Bowels active x4. Pulses present throughout. No edema noted. TLC to LIJ flushed without complications. Denies pain. Denies needs at this time. Call light in reach.
--- NOTE | 2020-05-29 21:06 | NUR ---
Patient up to restroom and returned to bed.
--- NOTE | 2020-05-29 21:07 | NUR ---
Patient called. Called back. Patient concerned with temperature of 99.1 that patient reported. Temperature now 99.0. concerned of covid19. Explained to patient currently under 3 blankets and recently removed from patient. Will continue to monitor temp. Questions regarding discharge medications and what to do when home answered. Would like a list sent home along with all new presciptions sent to [facility]. Will update next shift. Denies any further questions at this time.
[2020-05-30] VITALS (10 sets, daily range): BP systolic 127–176; BP diastolic 43–80; PULSE 59–82; TEMP 98.1–99
--- NOTE | 2020-05-30 00:12 | NUR ---
Patient called stating he would not like patient on zoloft anymore and patient is not depressed. Pharmacy and Apoorva GARCIA notified. Will update Dr. Ponce in AM.
--- NOTE | 2020-05-30 00:16 | NUR ---
Resting in bed. Denies needs. Call light in reach.
--- NOTE | 2020-05-30 01:03 | NUR ---
BP elevated. Provided with PRN hydralazine. Will recheck BP
--- NOTE | 2020-05-30 01:55 | NUR ---
Patient BP continues to be elevated. Spoke with Apoorva GARCIA. OKay to give another dose of hydralazine 10mg IV now. Patient also reporting nausea. Will provide zofran and continue to monitor.
--- NOTE | 2020-05-30 04:23 | NUR ---
Resting in bed. Denies needs. Call light in reach.
--- NOTE | 2020-05-30 06:03 | NUR ---
Patient had elevated BP with nausea and given x1 dose of hydralazine. Otherwise uneventful night. Resting in bed this AM. Call light in reach.
[2020-05-30 06:12] LABS: BASO # 0.1 (0.0-0.2); BASO % 0.9 % (0.0-2.0); EOS # 0.2 (0.0-0.7); EOS % 2.8 % (0-4.0); GRAN # 3.8 (1.4-6.5); GRAN % 57.4 % (42.2-75.2); HEMATOCRIT 25.8 % (37.0-47.0); HEMOGLOBIN 8.1 g/dl (12.5-16.0); LYMPH # 1.6 (1.2-3.4); LYMPH % 24.4 % (20.0-51.0); MEAN CELL VOLUME 92 fl (80.0-100.0); MEAN CORPUSCULAR HEMOGLOBIN 29 pg (27.0-31.0); MEAN CORPUSCULAR HGB CONC 31 g/dl (33.0-37.0); MEAN PLATELET VOLUME 13.5 fl (7.4-10.4); MONO # 0.9 (0.1-0.6); MONO % 14.1 % (1.7-9.3); PLATELET COUNT 161 K/mm3 (130-400); RED BLOOD COUNT 2.82 M/mm3 (4.10-5.30); REDCELL DISTRIBUTION WIDTH-CV 13.6 % (11.5-14.5)
[2020-05-30 06:30] LABS: ALBUMIN 3.1 gm/dL (3.5-5.0); BILIRUBIN,TOTAL 0.3 mg/dL (0.0-1.0); CALCIUM 8.5 mg/dL (8.4-10.2); CREATININE, serum 1.72 (0.52-1.25); MAGNESIUM 1.9 mg/dL (1.6-2.3); PHOSPHOROUS 3.7 mg/dL (2.5-4.5); TOTAL PROTEIN 5.9 gm/dL (6.4-8.2)
--- NOTE | 2020-05-30 07:12 | NUR ---
Report given to KELTON Walton
--- NOTE | 2020-05-30 09:44 | NUR ---
Assessment complete. Patient is alert and oriented sitting in bed at this time. States her neck feels stiff but IJ site does not look swollen or enflamed. Patient had no complaints of pain or discomfort. Spoke with her this morning and gave him an update, he requested a time of discharge but I informed him that the medical team and physician would need to see her first. No other needs were expressed at this time. Call light is in reach.
--- NOTE | 2020-05-30 14:09 | NUR ---
Risk Control Consultant attended clinicial rounds with the team. Patient expressed frustration and expressed that she's never seen Hospitalist before although Dr. Lopez visited with her yesterday. Plan is for MRI today. Hospitalist would like for patient to consider SNF. MORGAN followed up with patient who states she is not willing to consider SNF and will be going home upon discharge. MORGAN spoke with patient about Home Health and advised that [facility] can accept referral. Patient denies that SW had conversation with her about [facility]. MORGAN advised patient that she had patient's Sanchez on speakerphone and the three of them discussed HH and [facility]. Patient denies that this occurred. MORGAN followed up with patient's , Sanchez who reports that patient has been having issues with memory. Sanchez states he wants to move forward with [facility]. MORGAN faxed updates to Pema at [facility] and will continue to follow.
--- NOTE | 2020-05-30 18:06 | NUR ---
Patient has had a good day today. She did not have any episodes of lethargy with me. At one point the therapist was trying to work with her and she was having trouble arousing her. I entered the room and was able to arouse her with loud voice, I then informed her that the therapist would like to work with her and she agreed to this. I have had no other issues through the day. Patient has had no other complaints. Call light is in reach.
--- NOTE | 2020-05-30 20:11 | NUR ---
Resting in bed. Assessment complete. Lungs clear. Heart sounds normal. Bowels active x4. Pulses present throughout. No edema noted. Patient alert and orientated talking with family on phone. TLC to LIJ flushed without complications. Denies needs. Denies pain. Call light in reach.
--- NOTE | 2020-05-30 22:06 | NUR ---
Up to restroom and returned to bed. Denies needs. Call light in reach.
[2020-05-31] VITALS (7 sets, daily range): BP systolic 120–184; BP diastolic 50–74; PULSE 54–70; TEMP 97.6–98.8
--- NOTE | 2020-05-31 00:52 | NUR ---
Patient resting in bed. called wanting to know MRI results and if it showed early stages of dementia for patient due to patient being forgetful at times. Informed patient MRI will be reviewed during hospitalist rounds tomorrow. Also would like patient to be sent home with plenty of information with how to manage diabetes. Reports patient does not take insulin properly at home. Will eat with high blood sugars and then take insulin once sugars at 400-500s. Will pass this information to next shift.
--- NOTE | 2020-05-31 04:44 | NUR ---
BP elevated. Provided with PRN hydralazine at this time. Will monitor.
[2020-05-31 05:09] LABS: BASO # 0.1 (0.0-0.2); BASO % 1.1 % (0.0-2.0); EOS # 0.3 (0.0-0.7); EOS % 4.5 % (0-4.0); GRAN # 3.8 (1.4-6.5); GRAN % 51.9 % (42.2-75.2); LYMPH # 2.1 (1.2-3.4); LYMPH % 28.6 % (20.0-51.0); MEAN CELL VOLUME 92 fl (80.0-100.0); MEAN CORPUSCULAR HGB CONC 31 g/dl (33.0-37.0); MEAN PLATELET VOLUME 13.1 fl (7.4-10.4); MONO % 13.6 % (1.7-9.3); PLATELET COUNT 173 K/mm3 (130-400); RED BLOOD COUNT 2.86 M/mm3 (4.10-5.30); REDCELL DISTRIBUTION WIDTH-CV 13.6 % (11.5-14.5)
[2020-05-31 05:15] LABS: HEMATOCRIT 26.2 % (37.0-47.0); HEMOGLOBIN 8.2 g/dl (12.5-16.0); MEAN CORPUSCULAR HEMOGLOBIN 29 pg (27.0-31.0)
[2020-05-31 05:17] LABS: CALCIUM 8.6 mg/dL (8.4-10.2); CREATININE, serum 1.87 (0.52-1.25); POTASSIUM 4.3 mmol/L (3.4-5.0)
--- NOTE | 2020-05-31 05:37 | NUR ---
Patient BP was elevated for 0400 vital signs and given hydralazine. Otherwise uneventful night. Patient had several questions last night that will be passed on for hospitalist to address during rounds this AM. Otherwise uneventful night. Resting in bed this AM. Call light in reach.
--- NOTE | 2020-05-31 06:57 | NUR ---
Report given to KELTON Walton
--- NOTE | 2020-05-31 08:52 | NUR ---
Assessment complete. Patient sitting up in bed, finished breakfast. She is awake, alert and oriented. No complaints of pain or discomfort were expressed. IJ site is CD&I, flushed well. She is aware of her POC and spoke with Dr. Ponce this morning and understands that she had a small stroke. No other needs were expressed at this time. Call light is in reach.
--- NOTE | 2020-05-31 09:32 | NUR ---
Called , Sanchez, during rounding to discuss pt's status-he is on speaker phone. Answered all of pt's/'s questions. Reviewed MRI results. Carotid/Echo studies pending.
[2020-05-31] MEDS ORDERED: DESYREL 50MG50 MG PO (15:24)
--- NOTE | 2020-05-31 16:22 | NUR ---
Metal Base Blocker attended clinical rounds with the team and patient to discharge today with [facility] PT/OT/Nursing. MORGAN contacted patient's , Sanchez who is in agreement with discharge plan. Sanchez will be here later to medicinal plant picker patient. MORGAN contacted [facility] who will deliver FWW to patient's home. MORGAN met with patient and read IM form aloud. Patient verbalized understanding and gave SW permission to sign on her behalf. MORGAN placed form in chart and provided copy to patient. MORGAN faxed discharge orders to Pema at [facility]. No additional needs at this time.
--- NOTE | 2020-05-31 18:21 | NUR ---
Patient has had a good day and is prepared to leave for discharge at this point. She is currently eating dinner after recieving her scheduled 5 units of insulin with a sugar of 161, I encouraged her to eat her meal as it arrived before her departure and her insulin had been administered. Central line has been removed from left IJ site, tip intact, no bleeding at the site. patient tolerated this well, site is dressed with a gauze and tegaderm. Discharge paperwork has been discussed and signed, no further questions were expressed from the patient. Her called in after she recieved her paperwork stating the pharmacy did not have her new medications. I called the pharmacy to assess the situation and what they needed was to reconcile the changes, these were faxed over, I will update ots when she leaves. No other needs.
--- NOTE | 2020-05-31 18:51 | NUR ---
Patient left the floor at this time. BS was 201, patient ate her full meal and was awake and alert while leaving. All questions were answered.
== END 2020-05-31 18:53 | disposition home health service (06) | DRG 637 ==
LOC: MEDICAL 17:53
PROVIDERS: Family Medicine; Nurse Practitioner Family; Physician Assistant; Surgery; ADMIT Internal Medicine
PROC: 02HV33Z Insertion of Infusion Device into Superior Vena Cava, Percutaneous Approach (ICD-10-PCS; principal; 2020-05-27 11:00)
DX: E10.649 Type 1 diabetes mellitus with hypoglycemia without coma (principal); K85.90 Acute pancreatitis without necrosis or infection, unspecified; G93.41 Metabolic encephalopathy; E87.1 Hypo-osmolality and hyponatremia; I63.9 Cerebral infarction, unspecified; G40.409 Other generalized epilepsy and epileptic syndromes, not intractable, without status epilepticus; E10.22 Type 1 diabetes mellitus with diabetic chronic kidney disease; E10.42 Type 1 diabetes mellitus with diabetic polyneuropathy; I12.9 Hypertensive chronic kidney disease with stage 1 through stage 4 chronic kidney disease, or unspecified chronic kidney disease; N18.9 Chronic kidney disease, unspecified; I49.3 Ventricular premature depolarization; M79.7 Fibromyalgia; G47.00 Insomnia, unspecified; K21.9 Gastro-esophageal reflux disease without esophagitis; R14.1 Gas pain; N17.9 Acute kidney failure, unspecified; M19.90 Unspecified osteoarthritis, unspecified site; Z88.5 Allergy status to narcotic agent; R41.0 Disorientation, unspecified; Z79.02 Long term (current) use of antithrombotics/antiplatelets; Z87.891 Personal history of nicotine dependence; Z87.820 Personal history of traumatic brain injury; Z88.1 Allergy status to other antibiotic agents
CPT/HCPCS: 99233-AI; 99239; A9585; C1751; G0378; J0360; J1815; J2405; J7030

== ENCOUNTER → 2020-05-26 | Emergency (ER) | payer MEDICARE, MEDICAID ==
[~2020-05-26] MED LIST changes: +BASAGLAR K100 UNIT/1 SQ; +DESYREL 50MG50 MG PO; +PRINIVIL20 MG PO; +TOPROL XL100 MG PO; +VIMPAT150 MG PO; +VIMPAT200 MG PO
== END ==
LOC: COL.ER 17:28
DX: E10.649 Type 1 diabetes mellitus with hypoglycemia without coma (principal); G93.40 Encephalopathy, unspecified; I10 Essential (primary) hypertension; K21.9 Gastro-esophageal reflux disease without esophagitis; E10.51 Type 1 diabetes mellitus with diabetic peripheral angiopathy without gangrene; I82.409 Acute embolism and thrombosis of unspecified deep veins of unspecified lower extremity; M79.7 Fibromyalgia; F17.210 Nicotine dependence, cigarettes, uncomplicated; Z79.4 Long term (current) use of insulin; Z79.01 Long term (current) use of anticoagulants; G40.409 Other generalized epilepsy and epileptic syndromes, not intractable, without status epilepticus; Z88.6 Allergy status to analgesic agent; Z88.1 Allergy status to other antibiotic agents; Z90.2 Acquired absence of lung [part of]; Z95.818 Presence of other cardiac implants and grafts

== ENCOUNTER 2020-07-18 20:48 | Observation (INO) | payer MEDICARE, MEDICAID ==
[~2020-07-18] VITALS: Ht 167.6 cm; Wt 80.7 kg
[~2020-07-18 20:48] MED LIST changes: +DESYREL 50MG50 MG PO
[2020-07-19 00:46] LABS: BASO # 0.1 (0.0-0.2); BASO % 0.6 % (0.0-2.0); EOS # 0.1 (0.0-0.7); EOS % 0.5 % (0-4.0); GRAN # 8.6 (1.4-6.5); GRAN % 75.1 % (42.2-75.2); HEMOGLOBIN 11.5 g/dl (12.5-16.0); LYMPH # 1.9 (1.2-3.4); LYMPH % 16.7 % (20.0-51.0); MEAN CELL VOLUME 88 fl (80.0-100.0); MEAN CORPUSCULAR HEMOGLOBIN 28 pg (27.0-31.0); MEAN CORPUSCULAR HGB CONC 32 g/dl (33.0-37.0); MONO # 0.8 (0.1-0.6); MONO % 6.8 % (1.7-9.3); PLATELET COUNT 285 K/mm3 (130-400); RED BLOOD COUNT 4.08 M/mm3 (4.10-5.30); REDCELL DISTRIBUTION WIDTH-CV 13.6 % (11.5-14.5)
[2020-07-19 00:48] LABS: HEMATOCRIT 35.8 % (37.0-47.0)
[2020-07-19 00:55] LABS: ALBUMIN 4.5 gm/dL (3.5-5.0); BILIRUBIN,TOTAL 0.4 mg/dL (0.0-1.0); CALCIUM 9.5 mg/dL (8.4-10.2); CREATININE, serum 2.07 (0.52-1.25); TOTAL PROTEIN 8.2 gm/dL (6.4-8.2)
[2020-07-19] MEDS ORDERED: AMOXICILLIN 25250 MG PO (03:54)
[2020-07-19] MEDS ORDERED: PRINIVIL40 MG PO (03:55)
--- NOTE | 2020-07-19 03:58 | NUR ---
Pt arrived to unit from ED via bed around 0245. Received report from ED nurse Mariela. Admission assessment completed. Med rec not able to be completed at this time as pt does not know her home medications. Stated she would have bring in a list tomorrow AM. Pt reports swelling to left foot, unable to assess due to splint and wrapping on LLE. Reports severe pain to left foot, PRN morphine administered. NS started at 75 ml/hr to right hand IV. A&O x4 but frequently repeats answers to questions multiple times and has to be redirected often. Oriented to room. Call light in reach.
[2020-07-19 04:12] VITALS: BP 178/68; PULSE 77; TEMP 98.3
--- NOTE | 2020-07-19 06:30 | NUR ---
Pt slept after arriving to unit. Pain relieved by IV morphine. Ortho to see pt this AM.
[2020-07-19 08:07] VITALS: BP 178/73; PULSE 69; TEMP 98.9
--- NOTE | 2020-07-19 08:10 | NUR ---
PT PLEASANT, TALKATIVE, REPETATIVE, AOX4, VITALS TAKEN, MEDS GIVEN, DIET ORDERED AND TRAY BROUGHT UP, ASSESSMENT PERFORMED, CAP REFILL <3 ON LLE, PT DENIES PAIN AT REST BUT HAS NOT ATTEMPTED TO GET UP. PT HAD ELEVATED BP, SPOKE TO ABOUT HOME MEDICATIONS, HE IS BRINGING IN HOME MEDS TO DO MED REC, NO OTHER NEEDS.
--- NOTE | 2020-07-19 10:56 | NUR ---
pt splint removed and gaymar boot applied, pt in pain so morphine given, pt then became nauseous and started vomiting, zofran given. NETTE Green called about switching pain medication.
[2020-07-19 11:54] VITALS: BP 161/66; PULSE 64; TEMP 98.6
--- NOTE | 2020-07-19 12:16 | NUR ---
First visit from the online marketing coordinator. No needs right now.
[2020-07-19 12:22] LABS: CALCIUM 9.2 mg/dL (8.4-10.2); CREATININE, serum 2.06 (0.52-1.25); POTASSIUM 5.1 mmol/L (3.4-5.0)
--- NOTE | 2020-07-19 12:30 | NUR ---
PT APPEARS VERY EMOTIONAL ABOUT HER PACEMAKER, SHE WAS TEARFUL WHEN TALKING ABOUT WORRYING ABOUT HER . NO OTHER NEEDS AT THIS TIME.
[2020-07-19 16:00] VITALS: BP 152/59; PULSE 63; TEMP 98
--- NOTE | 2020-07-19 17:10 | NUR ---
Chemical Process Equipment Operator attended clinical rounds with the team and patient's , Sanchez (ph#[phone]) is at bedside. SW followed up with patient after rounds to discuss discharge planning. Patient lives in [place] with her and sees Dr. Aguilar for primary care. Patient obtains medications from [facility] and has a walker at home. Per, PT patient will need a wheelchair with elevating leg rests and a 3 in 1 commode. Patient would like to look into [employer] to get this equipment but also wants what will be least expensive. Patient is interested in re-starting services with [facility] at discharge as she had them after her last hospitalization. SW faxed referral to [facility] and will continue to follow.
--- NOTE | 2020-07-19 17:31 | NUR ---
PT PLEASANT, AOX4, TALKATIVE, REPETITIVE, PT WILL RECIEVE MRA OF HEAD AND NECK, PT SWITCHED TO [place], NO NAUSEA SINCE MORPHINE ADMINISTRATION EARLIER. PT DENIES PAIN AT REST IN BED.
[2020-07-19 20:20] VITALS: BP 186/81; PULSE 67; TEMP 98
--- NOTE | 2020-07-19 23:31 | NUR ---
pt resting in bed, reporting nausea. gave zofran per DEC and pt stated that nausea has resolved. pt reports pain in the left foot, denies anywhere else. pt denies chest pain and shortness of breath. heart sounds are regular and normal, blood pressure is elevated in the upper 170s. talked with plant operations worker APPAREL MANUFACTURE INSTRUCTOR and will continue to monitor. lung sounds are clear in all lobes and pt is on room air. talked with patients on the phone and updated on the plan of care. no other needs at this time.
[2020-07-20 00:49] VITALS: BP 193/71; PULSE 84; TEMP 99.3
--- NOTE | 2020-07-20 01:08 | NUR ---
pt blood pressure was 190s/70s, reported to Sara GARCIA. Sara stated that she would adjust meds accordingly. will continue to monitor.
[2020-07-20 03:01] VITALS: BP 173/66; PULSE 86; TEMP 99.5
--- NOTE | 2020-07-20 05:28 | NUR ---
pt slept in bed most of the night. did have some nausea during dinner, gave zofran per MAR and provided with food after. did not call for many needs during the night. no other needs at this time.
[2020-07-20 06:46] LABS: BASO # 0.1 (0.0-0.2); BASO % 0.8 % (0.0-2.0); EOS # 0.3 (0.0-0.7); EOS % 4.2 % (0-4.0); GRAN # 3.8 (1.4-6.5); GRAN % 58.2 % (42.2-75.2); LYMPH # 1.9 (1.2-3.4); LYMPH % 29.1 % (20.0-51.0); MEAN CELL VOLUME 88 fl (80.0-100.0); MEAN CORPUSCULAR HGB CONC 32 g/dl (33.0-37.0); MEAN PLATELET VOLUME 12.1 fl (7.4-10.4); MONO # 0.5 (0.1-0.6); MONO % 7.2 % (1.7-9.3); PLATELET COUNT 248 K/mm3 (130-400); RED BLOOD COUNT 3.24 M/mm3 (4.10-5.30); REDCELL DISTRIBUTION WIDTH-CV 13.5 % (11.5-14.5)
[2020-07-20 06:56] LABS: CALCIUM 8.7 mg/dL (8.4-10.2); CREATININE, serum 2.03 (0.52-1.25); POTASSIUM 5.3 mmol/L (3.4-5.0)
[2020-07-20 07:46] LABS: MEAN CORPUSCULAR HEMOGLOBIN 28 pg (27.0-31.0)
[2020-07-20 07:47] LABS: HEMATOCRIT 28.5 % (37.0-47.0)
[2020-07-20 07:49] LABS: HEMOGLOBIN 9.2 g/dl (12.5-16.0)
[2020-07-20 08:05] VITALS: BP 151/66; PULSE 67; TEMP 99.1
--- NOTE | 2020-07-20 09:07 | NUR ---
PT IN ROOM, ASSISTED TO BEDSIDE COMMODE. FRESH ICE WATER BROUGHT IN, TOOTH BRUSH GIVEN ALONG WITH OTHER HYGIENE PRODUCTS. PT SAID SHE WOULD LIKE BATH WIPES LATER IN THE DAY. PT PLEASANT, AOX4, APPEARS A BIT PARANOID, KEEPS THINKING SHE IS GOING TO HAVE SURGERY BECAUSE PEOPLE ASK HER QUESTIONS ABOUT HER HEALTH. MEDICATIONS GIVEN, VITALS REVIEWED, ASSESSMENT PERFORMED, PT NOT REPORTING PAIN IN LOWER EXTREMITY SINCE SHE HAS NOT MOVED IT MUCH. ONCE BACK IN BED FROM COMMODE EXTREMITY ELEVATED, PHYSICAL THERAPY THEN CAME TO WORK WITH PT.
[2020-07-20 12:26] VITALS: BP 144/73; PULSE 63; TEMP 100.6
--- NOTE | 2020-07-20 15:46 | NUR ---
updated on negative MRA. informed him blood cultures have not resulted. pt stated she was sick with bronchitis 2 weeks ago and was on amoxicillin 250mg and she missed the last dose due to her fall/admission. pt was also tested for COVID at time of doctors visit for cough/bronchitis and she was negative.
--- NOTE | 2020-07-20 16:02 | NUR ---
Ground Systems Engineer contacted [facility] and was advised they currently do not have wheelchairs with elevated leg rests. MORGAN contacted Maddie at [facility] who advised they have wheelchairs with elevated leg rests and can bill patient's insurance. MORGAN met with patient and patient's , Sanchez to provide update and they would like order for wheelchair sent to [facility]. Sanchez reports he will locate and purchase a three in one commode as this is an out of pocket expense. MORGAN contacted Pema at [facility] who advised they can accept referral. MORGAN contacted My at [facility] who advised Sanchez picked up wheelchair this afternoon. MORGAN will continue to follow.
[2020-07-20 17:07] VITALS: BP 131/55; PULSE 57; TEMP 98.8
--- NOTE | 2020-07-20 17:16 | NUR ---
NOT GIVING INSULIN DUE TO BS OF 103.
--- NOTE | 2020-07-20 18:30 | NUR ---
EDUCATED PT BLOOD CULTURES WOULD NOT COME BACK UNTIL UP TO 24HRS AFTER.
[2020-07-20 21:11] VITALS: BP 169/66; PULSE 65; TEMP 98.5
--- NOTE | 2020-07-20 22:04 | NUR ---
Pt resting in bed, denies nausea or vomiting and states that she was able to eat better today. assisted to the bedside commode, standby nonweight bearing on the left foot. heart sounds are regular and lung sounds are clear. provided education on lovenox for VTE, pt verbalizes understanding. no further needs at this time.
[2020-07-21 01:00] VITALS: BP 145/65; PULSE 57; TEMP 98.6
[2020-07-21 04:47] VITALS: BP 160/52; PULSE 65; TEMP 98.8
--- NOTE | 2020-07-21 05:07 | NUR ---
pt sleeping in bed most of the night. no reports of nausea or vomiting, no fevers this shift. reporting some pain and tenderness in the left foot, pivoted nonweight bearing on left. no other needs at this time, will continue to monitor.
[2020-07-21 07:21] LABS: BASO # 0.1 (0.0-0.2); BASO % 0.8 % (0.0-2.0); EOS # 0.5 (0.0-0.7); EOS % 8.2 % (0-4.0); GRAN # 2.7 (1.4-6.5); LYMPH # 2.7 (1.2-3.4); LYMPH % 41.1 % (20.0-51.0); MEAN CELL VOLUME 89 fl (80.0-100.0); MEAN CORPUSCULAR HGB CONC 32 g/dl (33.0-37.0); MEAN PLATELET VOLUME 12.3 fl (7.4-10.4); MONO # 0.6 (0.1-0.6); MONO % 8.6 % (1.7-9.3); PLATELET COUNT 223 K/mm3 (130-400); RED BLOOD COUNT 3.09 M/mm3 (4.10-5.30); REDCELL DISTRIBUTION WIDTH-CV 13.6 % (11.5-14.5)
[2020-07-21 07:25] VITALS: BP 150/58; PULSE 68; TEMP 98.8
[2020-07-21 07:35] LABS: CALCIUM 8.8 mg/dL (8.4-10.2); CREATININE, serum 1.68 (0.52-1.25); POTASSIUM 4.2 mmol/L (3.4-5.0)
[2020-07-21 07:48] LABS: HEMATOCRIT 27.5 % (37.0-47.0); HEMOGLOBIN 8.9 g/dl (12.5-16.0); MEAN CORPUSCULAR HEMOGLOBIN 29 pg (27.0-31.0)
[2020-07-21] MEDS ORDERED: CATAPRES 0.1MG0.1 MG PO (09:56)
[2020-07-21] MEDS ORDERED: NORCO 325 MG-51 TAB PO (09:57)
[2020-07-21] MEDS ORDERED: ASPIRIN 32325 MG/TAB PO (09:59)
--- NOTE | 2020-07-21 10:12 | NUR ---
MORGAN received a call from patients nurse that she was discharging.MORGAN contacted Rodríguez with [facility] to inform him of the discharge. MORGAN faxed paperwork to [phone].
[2020-07-21 11:13] VITALS: BP 135/60; PULSE 55; TEMP 98.6
--- NOTE | 2020-07-21 18:20 | NUR ---
Patient alert and oriented. complain of pain on bilateral legs. below the knee brace on left leg, Non weight bearing on left leg. patient afebrile this shift. Provided discharge education on future appt and new medications. INT discontinued. Patient drove her home. No question or concern at this time.
== END 2020-07-21 15:00 | disposition home or self-care (01) ==
LOC: COL.ER 20:48 → MEDICAL 07-19 01:09
PROVIDERS: Emergency Medicine; ADMIT Hospitalist
DX: S92.312A Displaced fracture of first metatarsal bone, left foot, initial encounter for closed fracture (principal); S92.322A Displaced fracture of second metatarsal bone, left foot, initial encounter for closed fracture; S92.332A Displaced fracture of third metatarsal bone, left foot, initial encounter for closed fracture; S92.342A Displaced fracture of fourth metatarsal bone, left foot, initial encounter for closed fracture; S92.212A Displaced fracture of cuboid bone of left foot, initial encounter for closed fracture; W18.30XA Fall on same level, unspecified, initial encounter; E11.42 Type 2 diabetes mellitus with diabetic polyneuropathy; E11.22 Type 2 diabetes mellitus with diabetic chronic kidney disease; I10 Essential (primary) hypertension; M79.7 Fibromyalgia; M17.0 Bilateral primary osteoarthritis of knee; G40.409 Other generalized epilepsy and epileptic syndromes, not intractable, without status epilepticus; K21.9 Gastro-esophageal reflux disease without esophagitis; R50.9 Fever, unspecified; Z88.1 Allergy status to other antibiotic agents; Z86.73 Personal history of transient ischemic attack (TIA), and cerebral infarction without residual deficits; Z79.4 Long term (current) use of insulin; Z88.5 Allergy status to narcotic agent; Z88.7 Allergy status to serum and vaccine; Z79.899 Other long term (current) drug therapy; Z91.81 History of falling; Z95.818 Presence of other cardiac implants and grafts
CPT/HCPCS: 99239; C9113; G0378; J1650; J1815; J1885; J2270; J2405; J3010; J7030; J7040

== ENCOUNTER 2020-09-13 14:20 | Outpatient (RCR) | payer MEDICARE, MEDICAID ==
[~2020-09-13 14:20] MED LIST changes: +ASPIRIN 32325 MG/TAB PO; +PRINIVIL40 MG PO
[2020-10-06] MEDS ORDERED: DEPAKOTE ER 50500 MG PO (09:16)
== END 2020-10-29 | disposition home or self-care (01) ==
LOC: MKS.ESL.PT
DX: S92.902A Unspecified fracture of left foot, initial encounter for closed fracture (principal)

== ENCOUNTER 2020-11-23 15:01 | Emergency (ER) | payer MEDICARE, MEDICAID ==
[~2020-11-23] VITALS: Ht 167.6 cm; Wt 84.1 kg
[~2020-11-23 15:01] MED LIST changes: +DEPAKOTE ER 50500 MG PO
[2020-11-23 15:06] VITALS: TEMP 99.5
[2020-11-23] MEDS ORDERED: TOPROL XL 50MG50 MG PO (15:35)
[2020-11-23] MEDS ORDERED: TOPROL XL100 MG PO (15:35)
[2020-11-23] MEDS ORDERED: VIMPAT150 MG PO (15:37)
[2020-11-23 16:16] LABS: COLLECTION METHOD CLEAN CATCH
[2020-11-23 16:24] LABS: MUCOUS Present /lpf; PH 5 (5-8); SQUAMOUS EPITHELIAL 0-2 /hpf; URINE APPEARANCE Clear; URINE BACTERIA None Seen /hpf; URINE BILIRUBIN Negative (NEGATIVE); URINE BLOOD 1+ (NEGATIVE); URINE COLOR Yellow; URINE GLUCOSE 2+ (NEGATIVE); URINE KETONE Negative (NEGATIVE); URINE LEUKOCYTE ESTERASE Negative (NEGATIVE); URINE NITRATE Negative (NEGATIVE); URINE PROTEIN(semi-quant) 2+ (NEGATIVE); URINE RBC 0-2 /hpf; URINE UROBILINOGEN Negative (NEGATIVE)
[2020-11-23 16:36] LABS: BASO % 0.7 % (0.0-2.0); EOS # 0.1 (0.0-0.7); EOS % 1.4 % (0-4.0); GRAN # 4.1 (1.4-6.5); GRAN % 70.2 % (42.2-75.2); HEMATOCRIT 33.3 % (37.0-47.0); HEMOGLOBIN 10.6 g/dl (12.5-16.0); LYMPH # 1.2 (1.2-3.4); LYMPH % 20.6 % (20.0-51.0); MEAN CELL VOLUME 90 fl (80.0-100.0); MEAN CORPUSCULAR HEMOGLOBIN 29 pg (27.0-31.0); MEAN CORPUSCULAR HGB CONC 32 g/dl (33.0-37.0); MEAN PLATELET VOLUME 11.4 fl (7.4-10.4); MONO # 0.4 (0.1-0.6); MONO % 6.9 % (1.7-9.3); PLATELET COUNT 318 K/mm3 (130-400); REDCELL DISTRIBUTION WIDTH-CV 13.1 % (11.5-14.5)
[2020-11-23 17:02] LABS: ALBUMIN 4.4 gm/dL (3.5-5.0); BILIRUBIN,TOTAL 0.4 mg/dL (0.0-1.0); CALCIUM 9.2 mg/dL (8.4-10.2); CREATININE, serum 1.53 (0.52-1.25); POTASSIUM 5.5 mmol/L (3.4-5.0); TOTAL PROTEIN 7.8 gm/dL (6.4-8.2)
[2020-11-23 17:18] LABS: PROLACTIN 12.4 ng/mL (3.0-18.6)
[2020-11-23 21:17] LABS: CALCIUM 9.1 mg/dL (8.4-10.2); CREATININE, serum 1.47 (0.52-1.25); POTASSIUM 3.8 mmol/L (3.4-5.0)
[2020-11-23 21:53] VITALS: BP 143/82; PULSE 84
== END 2020-11-23 22:39 | disposition home or self-care (01) ==
LOC: COL.ER 15:01
PROVIDERS: Physician Assistant
DX: G40.909 Epilepsy, unspecified, not intractable, without status epilepticus (principal); E11.65 Type 2 diabetes mellitus with hyperglycemia; E87.5 Hyperkalemia; I13.10 Hypertensive heart and chronic kidney disease without heart failure, with stage 1 through stage 4 chronic kidney disease, or unspecified chronic kidney disease; E11.40 Type 2 diabetes mellitus with diabetic neuropathy, unspecified; D64.9 Anemia, unspecified; Z95.0 Presence of cardiac pacemaker; Z88.1 Allergy status to other antibiotic agents; Z88.8 Allergy status to other drugs, medicaments and biological substances; Z88.6 Allergy status to analgesic agent; Z87.891 Personal history of nicotine dependence; Z79.4 Long term (current) use of insulin; Z79.02 Long term (current) use of antithrombotics/antiplatelets
CPT/HCPCS: J1815; J7030

== ENCOUNTER 2021-03-11 12:32 | Emergency (ER) | payer MEDICARE, MEDICAID ==
[~2021-03-11] VITALS: Ht 167.6 cm; Wt 81.8 kg
[2021-03-11 12:43] VITALS: TEMP 99.4
[2021-03-11] MEDS ORDERED: ULTRAM 50MG TAB50 MG PO (14:17)
[2021-03-11 14:31] VITALS: BP 195/88; PULSE 78
== END 2021-03-11 14:31 | disposition home or self-care (01) ==
LOC: COL.ER 12:32
DX: S93.402A Sprain of unspecified ligament of left ankle, initial encounter (principal); S93.602A Unspecified sprain of left foot, initial encounter; Z88.5 Allergy status to narcotic agent; Z87.81 Personal history of (healed) traumatic fracture; Z87.891 Personal history of nicotine dependence; W01.0XXA Fall on same level from slipping, tripping and stumbling without subsequent striking against object, initial encounter

== ENCOUNTER → 2021-07-26 | Outpatient (CLI) | payer MEDICARE, MEDICAID ==
[2021-07-26 16:51] LABS: TROPONIN-I < 0.010 ng/mL (0.00-0.033)
== END ==
LOC: ZCOL.LAB 16:03
PROVIDERS: Nurse Practitioner
DX: I10 Essential (primary) hypertension (principal); R07.89 Other chest pain

== ENCOUNTER → 2022-06-24 | Outpatient (CLI) | payer MEDICARE, MEDICAID | LOC: COL.RAD 10:56 | DX: R79.89 Other specified abnormal findings of blood chemistry (principal) ==

== ENCOUNTER → 2022-10-02 | Outpatient (CLI) | payer MEDICARE, MEDICAID ==
[~2022-10-02] MED LIST changes: +ALDACTONE 25MG25 M1 PO; +ASPERCREME1 EACH TP; +BYSTOLIC20 MG PO; +CARAFATE 1GM1 G PO; +DIOVAN 160MG160 MG PO; +JARDIANCE10 PO; +MINOXIDIL 2.5 PO; +PHENERGAN 25 TA25 MG PO; +PHENOBARBITAL 330 MG PO; +ZOFRAN ODT8 MG PO
--- NOTE | 2022-10-02 12:32 | NUR ---
PT WAS HAVING AN EMESIS. SPOKE TO TO DR MEZA AND HE SAID WE SHOULD WAIT UNTIL SHE FEELS BETTER. PT WAS TAKEN TO ER AND SITUATION EXPLAINED TO ER STAFF.
== END ==
LOC: COL.RAD 11:26
DX: M54.12 Radiculopathy, cervical region (principal)